=== PATIENT | female | born 2005 | race Caucasian/White ===

== ENCOUNTER 2023-04-07 02:50 | Emergency (ER) | payer OTHER, SELFPAY ==
[2023-04-07 02:57] VITALS: BP 130/70; PULSE 80; RESP 18; TEMP 37.5; O2SAT 99; BMI 42.8
[2023-04-07 03:29] LABS: Appearance Urine Clear; Color Urine Yellow; Glucose Urine UA Negative (Negative); Leukocyte Esterase Urine Moderate (2+) (Negative); Nitrite Urine Negative (Negative); Specific Gravity - Urine 1.025 (1.005-1.025); UMIC TRIGGER UACC YES; Urine Blood Negative (Negative); Urine Ketones Negative (Negative); Urine Protein Negative (Neg-Trace)
[2023-04-07 03:31] LABS: UPreg QC Valid YES; Urine Pregnancy NEGATIVE (NEGATIVE)
[2023-04-07 03:33] LABS: Bacteria Urine None Seen (None Seen); Hyaline Casts Urine 0-2 /LPF (0-2); RBC Urine 0-2 /HPF (0-2); Squamous Epithelial Cell Urine 0-2 /HPF (0-2); UACC Culture Trigger YES
--- NOTE | 2023-04-07 03:40 | ED_ITS ---
HPI - Female Genitourinary General Chief complaint: Vaginal Bleeding Stated complaint: Vaginal Issue Time Seen by Provider: 04/07/23 03:16 Source: patient Mode of arrival: ambulatory History of Present Illness HPI Narrative: 17-year-old female who presents with concerns for vaginal discharge for the past 3 days without dysuria and reports unprotected sex this past weekend. Related Data Previous Rx's Medication Instructions Recorded doxycycline monohydrate 100 mg 100 mg PO BID 7 days #14 caps 04/07/23 capsule Allergies Allergy/AdvReac Type Severity Reaction Status Date / Time No Known Allergies Allergy Verified 04/07/23 02:56 Review of Systems Review of Systems: Pertinent positives and negatives as stated in HPI [facility] Past Medical History Source: nursing notes reviewed Social History Social History Substance Use Type: Marijuana Physical Exam Vital Signs: Vital Signs: Last Vital Signs Temp 99.5 F 04/07/23 02:57 Pulse 80 04/07/23 02:57 Resp 18 04/07/23 02:57 BP 130/70 04/07/23 02:57 Pulse Ox 99 04/07/23 02:57 O2 Del Method Room Air 04/07/23 02:57 BMI result Body Mass Index 42.8 VITAL SIGNS: Reviewed. GENERAL: Well developed, well nourished, in no acute distress. HEAD: Normocephalic/atraumatic EYES: PERRLA, EOMI EARS: Ext canals without abnormality NOSE: Nares patent bilateral OROPHARYNX: no oral lesions noted, posterior pharynx clear NECK: Supple, no adenopathy LUNGS: Normal breath sounds. No adventitious sounds or accessory muscle use. SpO2<99> CARDIOVASCULAR: Regular rate and rhythm without noted murmurs ABDOMEN: Soft, non-tender, non-distended with bowel sounds. NEUROLOGIC: Alert and oriented x 4. Strength and sensation to light touch were grossly intact x 4. Medical Decision Making Medical Decision Making [facility] Narrative: 17-year-old female with history and clinical presentation, DDX: STI, UTI, urine . Urinalysis significant for leukocyte esterase in the presence of wbc's without bacteria in appears to be a clean catch, in is negative, after having a lengthy discussion with the patient the decision is being made to empirically treat patient for sexually transmitted infection and instructions on how to access the patient portal system for follow-up Treated with 500 mg IM Rocephin, 100 mg doxycycline. Differential Diagnosis Differential Diagnoses: The differential diagnosis associated with the presentation includes Please see the discussion above Admission/Observation Consideration of admission/observation: Escalation of care including admission/observation considered Please see the discussion above Lab Data MDM Lab Attestation statement: I reviewed the patient's lab results. Please see this discussion above Labs: Lab Results 04/07/23 Range/Units 03:22 Urine Color Yellow Urine Appearance Clear Urine pH 7.0 (5.0-9.0) Ur Specific [place] 1.025 (1.005-1.025) Urine Protein Negative (Neg-Trace) mg/dL Urine Glucose (UA) Negative (Negative) mg/dL Urine Ketones Negative (Negative) mg/dL Urine Blood Negative (Negative) Urine Nitrite Negative (Negative) Ur Leukocyte Esterase Moderate (2+) H (Negative) Urine RBC 0-2 (0-2) /HPF Urine WBC 11-20 H (0-5) /HPF Ur Squamous Epith Cells 0-2 (0-2) /HPF Urine Bacteria None Seen (None Seen) Hyaline Casts 0-2 (0-2) /LPF Urine Test NEGATIVE (NEGATIVE) Discharge Plan Discharge Clinical Impression: Vaginal discharge Patient Disposition: Home, Self-Care Instructions: Sexually Transmitted Diseases (ED), Safe Sex Practices (ED), Vaginal Discharge (ED) Additional Instructions: 1. Complete the entire course of antibiotics as prescribed UNLESS THE PATIENT PORTAL REPORTS YOUR EXAMINATION NEGATIVE. AT THAT TIME YOU WOULD BE ABLE TO STOP TAKING THE ANTIBIOTICS. 2. IN THE MEANTIME ABSTAIN FROM SEXUAL INTERCOURSE AND YOU WILL NEED TO NOTIFY YOUR SEXUAL PARTNERS. Prescriptions: New doxycycline monohydrate 100 mg capsule 100 mg PO BID 7 Days Qty: 14 0RF
[2023-04-07] MEDS: Doxycycline Monohydrate 100 MG CAPSULE PO (03:50)
[2023-04-07] MEDS: cefTRIAXone sodium 500 MG, Lidocaine HCl 1 % MPF 1 ML IM (03:51)
[2023-04-07 05:16] LABS: CT PCR NOT DETECTED (Not Detect.); NG PCR NOT DETECTED (Not Detect.)
== END 2023-04-07 04:00 | disposition home or self-care (01) ==
PROVIDERS: Emergency Provider Student in an Organized Health Care Education/Training Program
DX: N89.8 Other specified noninflammatory disorders of vagina (principal)
CPT/HCPCS: 0353U; 81001; 81025; 87086; 96372; 99284; J0696